=== PATIENT | female | born 1995 | race Caucasian/White ===

== ENCOUNTER 2020-03-28 17:46 | Observation (INO) ==
[2020-03-28 19:07] LABS: Bacteria,Urine Few per hpf (None-Few); Bilirubin,Urine Negative (Negative); Blood,Urine Negative (Negative); Clarity,Urine Clear (Clear); Color,Urine Light-Yellow (Yellow); Glucose,Urine (UA) 500 mg/dL (Normal); Ketones,Urine 40 mg/dL (Negative); Leukocyte Esterase,Urine Small (Negative); Mucus,Urine Few per lpf (None-Few); Nitrite,Urine Negative (Negative); Protein,Urine Negative (Neg-Trace); RBC,Urine 0-3 per hpf (0-3); Specific Gravity,Urine 1.012 (1.010-1.025); Squamous Epithelial Cell,Urine Few per hpf (None-Few); Urobilinogen,Urine Normal (Normal); WBC,Urine 0-3 per hpf (0-3)
== END 2020-03-28 20:26 | disposition home or self-care (01) ==
LOC: 1NENULAB
PROVIDERS: ADMIT Obstetrics & Gynecology; ATTEND Obstetrics & Gynecology

== ENCOUNTER 2020-05-03 10:25 | Inpatient (IN) ==
[2020-05-03 09:55] LABS: Basophils % 0.5 %; Eosinophils % 0.3 %; Hematocrit 40.9 % (35.3-44.9); Hemoglobin 13.4 g/dL (11.5-15.4); Immature Granulocytes % 0.4 % (0-4); Lymphocytes # 2.1 K/mcL (0.6-4.6); Lymphocytes % 26.6 %; Mean Corpuscular HGB Conc 32.8 g/dL (31.6-35.5); Mean Corpuscular Hemoglobin 28.7 pg (28.0-33.3); Mean Corpuscular Volume 87.6 fL (83.0-100.0); Mean Platelet Volume 11.8 fL (9.4-12.4); Monocytes # 0.4 K/mcL (0.0-1.3); Monocytes % 4.7 %; Neutrophils # 5.3 K/mcL (1.6-8.9); Platelet Count 179 K/mcL (140-400); Red Blood Count 4.67 M/mcL (3.82-4.97); Red Cell Distribution Width 11.9 % (11.5-14.5); Segmented Neutrophils % 67.5 %; White Blood Count 7.9 K/mcL (4.3-11.1)
[2020-05-03 09:58] LABS: Amphetamine Screen,Urine Negative ng/mL (Cutoff=1000); Barbiturate Screen,Urine Negative ng/mL (Cutoff=200); Benzodiazepines Screen,Urine Negative ng/mL (Cutoff=200); Cannabinoid Screen,Urine Negative ng/mL (Cutoff = 50); Cocaine Screen,Urine Negative ng/mL (Cutoff= 300); Opiate Screen,Urine Negative ng/mL (Cutoff=300); Phencyclidine Screen,Urine Negative ng/mL (Cutoff=25)
[~2020-05-03 10:25] MED LIST: *HR* FentaNYL (PF) 100 MCG/2 ML VIAL IVP PRN; *HR* FentaNYL (PF) 100 MCG/2 ML VIAL ONE; Azithromycin 500 MG in 0.9 % Sodium Chloride 250 ML IVPB PRN; Bupivacaine-MPF 0.25% 10 ML VIAL ONE; Famotidine 20 MG/2 ML VIAL IVP PRN; Lidocaine 1% 20 ML MDV INFILT PRN; Metoclopramide 10 MG/2 ML VIAL IVP PRN; Naloxone 0.4 MG/ML INJ IVP PRN; Ondansetron 4 MG/2 ML VIAL IVP PRN; Oxytocin 20 units/ LR 1000 mL 20 UNIT/1,000 ML BAG IVC SCH; Penicillin G Potassium 5,000,000 UNIT in 0.9 % Sodium Chloride Mini Bag 100 ML IVPB ONE; Ringers Solution, Lactated 1,000 ML IVC SCH
[2020-05-03] MEDS ORDERED: 0.9 % Sodium Chloride 2,000 ML ONE (10:31)
[2020-05-03] MEDS ORDERED: Epidural Premix (fent/bupiv) 110 ML EP ONE (11:08)
[2020-05-03] MEDS ORDERED: D5% in Water 1,000 ML IVC PRN ×2 (11:15→17:28)
[2020-05-03] MEDS ORDERED: Insulin Human Regular 100 UNIT in 0.9 % Sodium Chloride 100 ML IVC SCH (11:15)
[2020-05-03] MEDS ORDERED: 0.9 % Sodium Chloride 1,000 ML IVC SCH (11:30)
[2020-05-03] MEDS ORDERED: *HR* Phenylephrine 10 MG/ML VIAL ONE (12:42)
[2020-05-03] MEDS ORDERED: EPHEDrine 50 MG/ML VIAL IVP PRN (12:51)
[2020-05-03] MEDS ORDERED: 0.9 % Sodium Chloride 500 ML ONE (12:54)
[2020-05-03] MEDS ORDERED: *HR* FentaNYL (PF) 100 MCG/2 ML VIAL ONE (13:19)
[2020-05-03] MEDS ORDERED: Lidocaine/EPI 1:200k 2% PF 20 ML VIAL ONE (13:19)
[2020-05-03] MEDS ORDERED: Vancomycin 1,000 MG in Sodium Chloride IRRigation 250 ML IR ONE (13:28)
[2020-05-03] MEDS ORDERED: Penicillin G Potassium 2,500,000 UNIT in 0.9 % Sodium Chloride 100 ML IVPB SCH (14:00)
[2020-05-03] MEDS ORDERED: *HR* Morphine Sulfate/PF 10 MG/10 ML AMPUL ONE (14:04)
[2020-05-03] MEDS ORDERED: *HR* FentaNYL (PF) 100 MCG/2 ML VIAL IVP PRN (14:20)
[2020-05-03] MEDS ORDERED: Ondansetron 4 MG/2 ML VIAL IVP PRN ×2 (14:20→17:12)
[2020-05-03] MEDS ORDERED: Naloxone 0.4 MG/ML INJ IVP PRN (14:20)
[2020-05-03] MEDS ORDERED: *HR* OxyCODONE Immed Rel 5 MG TABLET PO SCH (14:30)
[2020-05-03] MEDS ORDERED: Rho Immune Globulin 1,500 UNIT SYRINGE IM ONE (17:12)
[2020-05-03] MEDS ORDERED: *HR* OxyCODONE Immed Rel 5 MG TABLET PO PRN (17:12)
[2020-05-03] MEDS ORDERED: Metoclopramide 10 MG/2 ML VIAL IVP PRN (17:12)
[2020-05-03] MEDS ORDERED: *HR* Dextrose 50 % in Water (Vial) 50 ML VIAL IVP PRN (17:28)
[2020-05-03] MEDS ORDERED: Dextrose Gel 15 GM/37.5 ML TUBE PO PRN ×2 (17:28)
[2020-05-03] MEDS: Insulin LISPRO 300 UNITS/3 ML VIAL SQ SCH (18:20)
[2020-05-03] MEDS: cephALEXin 500 MG CAPSULE PO SCH ×2 (19:37→19:38)
[2020-05-03] MEDS: Acetaminophen 325 MG TABLET PO SCH (19:38)
[2020-05-03] MEDS: metroNIDAZOLE 500 MG TABLET PO SCH ×2 (19:38)
[2020-05-03] MEDS: Ibuprofen 600 MG TABLET PO SCH (19:38)
[2020-05-03] MEDS: Oxytocin 20 units/ LR 1000 mL 20 UNIT/1,000 ML BAG IVC SCH (19:40)
[2020-05-04] MEDS: Ibuprofen 600 MG TABLET PO SCH ×4 (00:30→19:00)
[2020-05-04] MEDS: Acetaminophen 325 MG TABLET PO SCH ×4 (00:31→19:00)
[2020-05-04] MEDS: Simethicone 80 MG TAB.CHEW PO PRN ×2 (05:10→15:04)
[2020-05-04] MEDS: Prenatal Vit/FA 1 EACH TABLET PO SCH (07:23)
[2020-05-04] MEDS: metroNIDAZOLE 500 MG TABLET PO SCH ×2 (07:23→15:03)
[2020-05-04] MEDS: cephALEXin 500 MG CAPSULE PO SCH ×2 (07:23→15:04)
[2020-05-04 07:46] LABS: Basophils % 0.3 %; Eosinophils % 0.2 %; Hematocrit 28.9 % (35.3-44.9); Immature Granulocytes % 0.4 % (0-4); Lymphocytes # 2.2 K/mcL (0.6-4.6); Lymphocytes % 18.5 %; Mean Corpuscular HGB Conc 32.5 g/dL (31.6-35.5); Mean Corpuscular Volume 89.2 fL (83.0-100.0); Monocytes # 0.6 K/mcL (0.0-1.3); Monocytes % 4.8 %; Neutrophils # 9.1 K/mcL (1.6-8.9); Platelet Count 149 K/mcL (140-400); Red Blood Count 3.24 M/mcL (3.82-4.97); Red Cell Distribution Width 11.9 % (11.5-14.5); Segmented Neutrophils % 75.8 %
[2020-05-04 07:49] LABS: Hemoglobin 9.4 g/dL (11.5-15.4)
[2020-05-04 08:31] LABS: Alanine Aminotransferase 4 Units/L (7-52); Aspartate Amino Transferase 16 Units/L (13-39); BUN/Creatinine Ratio 13 (6-26); Blood Urea Nitrogen 7 mg/dL (6-20); Lactate Dehydrogenase 216 Units/L (140-271); Uric Acid 4.9 mg/dL (2.3-7.6); eGFR For African Americans > 60 (> 60); eGFR For Non-African Americans > 60 (> 60)
[2020-05-04] MEDS: Oxytocin 20 units/ LR 1000 mL 20 UNIT/1,000 ML BAG IVC SCH (09:52)
[2020-05-04] MEDS: Insulin LISPRO 300 UNITS/3 ML VIAL SQ SCH (12:04)
[2020-05-04] MEDS ORDERED: Insulin DETEMIR 100 UNIT/ML X5UNITS SQ ONE (12:05)
[2020-05-05] MEDS: Ibuprofen 600 MG TABLET PO SCH ×2 (03:59→15:31)
[2020-05-05] MEDS: Acetaminophen 325 MG TABLET PO SCH ×2 (03:59→15:32)
[2020-05-05 06:04] LABS: Hematocrit 30.3 % (35.3-44.9); Mean Corpuscular Hemoglobin 29.6 pg (28.0-33.3); Mean Corpuscular Volume 89.6 fL (83.0-100.0); Platelet Count 164 K/mcL (140-400); Red Blood Count 3.38 M/mcL (3.82-4.97); Red Cell Distribution Width 12.2 % (11.5-14.5); White Blood Count 10.8 K/mcL (4.3-11.1)
[2020-05-05 06:08] LABS: BUN/Creatinine Ratio 14 (6-26); Blood Urea Nitrogen 8 mg/dL (6-20); Calcium 7.8 mg/dL (8.6-10.3); Carbon Dioxide 24 mEq/L (23-29); Chloride 109 mEq/L (98-107); Glucose 106 mg/dL (70-105); Osmolality,Calculated 287 (280-300); Potassium 3.6 mEq/L (3.5-5.1); Sodium 139 mEq/L (136-145); eGFR For African Americans > 60 (> 60); eGFR For Non-African Americans > 60 (> 60)
[2020-05-05] MEDS: metroNIDAZOLE 500 MG TABLET PO SCH ×3 (08:22→19:51)
[2020-05-05] MEDS: cephALEXin 500 MG CAPSULE PO SCH ×3 (08:22→19:51)
[2020-05-05] MEDS: Prenatal Vit/FA 1 EACH TABLET PO SCH (08:22)
[2020-05-05] MEDS ORDERED: Lanolin 7 G OINT...G. TP PRN (23:06)
[2020-05-06] MEDS: Ibuprofen 600 MG TABLET PO SCH ×2 (05:00→12:21)
[2020-05-06] MEDS: Insulin LISPRO 300 UNITS/3 ML VIAL SQ SCH ×2 (07:54→12:19)
[2020-05-06 08:07] VITALS: BP 117/75
[2020-05-06] MEDS: cephALEXin 500 MG CAPSULE PO SCH ×2 (08:20→15:04)
[2020-05-06] MEDS: metroNIDAZOLE 500 MG TABLET PO SCH ×2 (08:21→15:04)
[2020-05-06] MEDS: Acetaminophen 325 MG TABLET PO SCH ×2 (08:21→12:21)
== END 2020-05-06 15:18 | disposition home or self-care (01) | DRG 540 ==
LOC: 1NENULAB → 1NENUOBS 17:11
PROVIDERS: ADMIT Obstetrics & Gynecology; ATTEND Obstetrics & Gynecology